=== PATIENT | male | born 1930 | race Caucasian/White ===

== ENCOUNTER 2017-01-28 09:17 | Inpatient (IN) | payer MEDICARE, BC ==
[2017-01-26 10:29] LABS: BUN (BLOOD UREA NITROGEN) 45 MG/DL (6-23); CALCIUM, SERUM 8.4 MG/DL (8.5-10.4); CHLORIDE, SERUM 105 MMOL/L (96-112); CO2 (CARBON DIOXIDE) 27 MMOL/L (24-34); CREATININE 2.27 MG/DL (0.70-1.30); GFR AFRICAN AMERICAN 29 ML/MIN (>=60); GFR NON AFRICAN AMERICAN 25 ML/MIN (>=60); GLUCOSE, SERUM 174 MG/DL (60-99); POTASSIUM, SERUM 4.3 MMOL/L (3.5-5.3); SODIUM, SERUM 140 MMOL/L (135-148)
--- NOTE | ~2017-01-28 | HP ---
History And Physical [place] [address] [facility] [place]. [address] NAME: CHARISSE WEIR : [birth year] STATUS : ADM IN PAT#: [id number] AGE: 86 ADM/REG DATE : 01/28/17 MR#: [id number] REPORT SERV DATE: 01/28/17 DICTATED BY: PATRICK LUO DATE: 01/28/17 REPORT STATUS : Draft TRANSCRIBED BY: MODL DATE: 01/28/17 DATE OF ADMISSION: 01/28/2017 REASON FOR ADMISSION: Acute diverticulosis. HISTORY OF PRESENT ILLNESS: This is an 86-year-old white male who has trouble getting around the house and walking with stumbling and is at fall risk. He is trying to take care of his disabled who is in worse shape than he. His son and yyekaaev-ox-nii live across the street from him and he does have in care family visitors to help him. He began to have some vomiting and nausea earlier today and was constipated for the last couple of days. He has had diverticulitis less than three times. He has had surgery in the past by Dr. David Carrington. In all, he has had 22 surgeries. He has significant vascular disease and is followed by Dr. Ledezma for this. He has had no recent chest pain or increased shortness of breath. He does have swelling in his lower extremities all the time, and he says he has a history of congestive heart failure. He is admitted for treatment of the diverticulitis and is not probably a surgical candidate. His primary care physician is Dr. Damion Parker, with whom he has discussed end of life care. He does not want intubation or ventilation. PAST MEDICAL HISTORY: History of coronary artery disease with initial CABG in 1995 and a repeat CABG in 07/2004. He has peripheral arterial disease. Has had a femoral angioplasty and stent placement in 2008. Dr. Oscar Greer did this. He had a right SFA angioplasty in 2008 and a femoral-popliteal bypass in 2009. He had a carotid artery stenosis with a CEA on the right in 08/2011, also by Dr. Oscar Greer. Diabetes type 2, on insulin. Had been on Starlix and Levemir in the past. He has a history of hypertension, hyperlipidemia, chronic kidney disease, for which he sees Dr. Nick Park, but has not seen him in the last two or three years. He has GERD, history of pair of ganglioma and had a thoracotomy back in 1996 before that. He has a history of hyperparathyroidism and had a parathyroid gland removed previously. Dr. David Carrington had done this as well. He has esophageal stricture and has had dilation in the past. No recent dilation or dysphagia. He had a history of gastritis and GERD. He had a stomach ulcer as well in the past. I believe Dr. Park had done his endoscopy. 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 He had prostate cancer, was on Lupron, followed by Dr. Delfino Washington in the past, and he also has dysuria and trouble urinating now. He does have a history of hemorrhoids as well. HOME MEDICATIONS: Include the following: Xanax 1 mg twice a day, aspirin 81 mg p.o. daily, atorvastatin one a day, Plavix 75 mg p.o. daily, Fenofibrate 150 mg p.o. daily, flutamide 125 mg three times a day, folic acid and B12 and intrinsic factor one a day, furosemide 20 mg twice a day, Levemir 10 units at bedtime, pantoprazole 40 mg p.o. b.i.d., potassium History And Physical [address] [address] NAME: CHARISSE WEIR : [birth year] STATUS : ADM IN [facility]#: [id number] AGE: 86 ADM/REG DATE : 01/28/17 MR#: [id number] REPORT SERV DATE: 01/28/17 DICTATED BY: PATRICK LUO DATE: 01/28/17 REPORT STATUS : Draft TRANSCRIBED BY: MODL DATE: 01/28/17 chloride 10 mEq p.o. daily. He was on Starlix. Had been on Lopressor. Januvia 50 mg a day. ALLERGIES: HE IS ALLERGIC TO MORPHINE THAT CAUSES ITCHING AND RASH. SOCIAL HISTORY: He is . Takes care of his at home. 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 He had 35 years of work. A day or before, he retired. He lives in [place]. He quit smoking cigarettes 20 years ago. He did have asbestos exposure. He had attended the [employer] in the past, but grew up having build the [facility] in [place] when he lived in [facility] from the age 6 until adolescence. He has knee pain and does not ambulate very much. His orthopedic surgeon, Dr. Arnold, had thought he was too old and had too many medical problems to replace the knee joint. He takes a beer about once every two to three weeks, and keeps it at home in case somebody comes by. He does not take any other drugs. FAMILY HISTORY: He does not recall any other diseases that had ran in the family in the past. REVIEW OF SYSTEMS: He says he has 30% function of his heart or kidneys. Whether this was ejection fraction or creatinine clearance, it is unclear. He does have some aortic sclerosis, LVH, and had an echocardiogram in 2013 that showed ejection fraction in the 50s by old chart review. He has had no chest pain or shortness of breath. He has been nauseated and had some vomiting earlier. He has been constipated most recently. He has had no fever, chills, or night sweats. No unilateral weakness, melena, or hematemesis. [place] [phone] when Bernard QUIROS saw him in the emergency room and therefore elicited my help with admission to the hospital. He has had no melena, hematemesis, fits, seizures, convulsions, unilateral weakness, nausea, vomiting, or diarrhea. No weight loss. The remainder of the review of systems is negative except as above. PHYSICAL EXAMINATION: GENERAL: An elderly white male, looks chronically ill. No acute distress. Slow speech. Squints with the right eye. HEENT: EOMI. Sclerae are clear. Conjunctivae pink. NECK: No bruit. Without any JVD, though he does have a CEA scar on the right side that is visible. CHEST: Clear to A and P. The sternotomy scar is well healed. HEART: Regular S1, S2 without murmur, gallop, or click. ABDOMEN: Soft, is tender in the left lower quadrant. Bowel sounds are positive. No masses felt. EXTREMITIES: Have 1+ to trace edema bilaterally. I do not feel any distal pulses through dorsalis, pedis, and posterior tibial. NEUROLOGIC: He does withdraw to plantar stimulation. 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 Coordination intact. No tremor. He is symmetric neurologically bilaterally. SKIN: Without rash, ecchymosis, or bruising. Specifically in the left flank, there is no History And Physical [address] [place]. [address] NAME: CHARISSE WEIR : [birth year] STATUS : ADM IN [facility]#: [id number] AGE: 86 ADM/REG DATE : 01/28/17 MR#: [id number] REPORT SERV DATE: 01/28/17 DICTATED BY: PATRICK LUO DATE: 01/28/17 REPORT STATUS : Draft TRANSCRIBED BY: MODL DATE: 01/28/17 ecchymosis or bruising. LYMPHATICS: None are palpable. RECTAL: Exam was deferred, though he is having dysuria now. LABORATORY DATA: His white count is 25.8000, hemoglobin 11.4, hematocrit 35, platelet count is 346,000. His comprehensive metabolic panel shows a sodium of 140, potassium 4.5, BUN is 50 with a creatinine of 3.0. His glucose was 201. His estimated GFR was 18 mL a minute. His alkaline phosphatase 146. Otherwise liver tests are normal. Lipase is 204. The urinalysis showed a specific gravity of 1.013 with pH of 5. Negative dip. CT scan of the abdomen showed thickening of distal colon and sigmoid colon with stranding and inflammation in the adjacent mesentery consistent with diverticulitis. No abscess or free air collection was noted. Extensive calcified coronary arteries and abdominal aorta bilaterally and mild bilateral renal atrophy. Previous BMP on 01/26, had shown a creatinine of 2.24 with a BUN of 45, sodium 140, creatinine clearance estimated at 25 mL a minute. ASSESSMENT: 1. Diverticulitis with periluminal stranding into the fat tissue around this. I am going to go ahead and start him on the antibiotics now. He has already gotten Levaquin and Flagyl in the emergency room. We will continue these as before. 2. Peripheral vascular disease. 3. Cerebrovascular disease. 4. Atherosclerotic cardiovascular disease, status post CABG in 1995 and 2003. 5. Falling. 6. Chronic kidney disease, previously followed by Dr. Park. 7. Possible congestive heart failure, though his ejection fraction is 50%. He does not appear to have congestive heart failure at this time. 8. History of hyperparathyroidism, surgically treated. We will check magnesium and calcium. 9. Poor memory. 10.The patient does not wish to be resuscitated in the event of cardiac arrest. I reviewed what we should do in the event of natural occurring, and he requested no treatment. However, during the hospitalization, we will allow for treatment of life- threatening arrhythmias or hemodynamic compromise, and we will limit chest compressions and mechanical ventilation via endotracheal tube to be the measures he would not wish undertaken. PLAN: Levaquin and Flagyl IV. Check procalcitonin. Check sedimentation rate for parameter to follow for hospitalization. The patient does not appear to be a good surgical candidate and therefore IV antibiotics and bowel rest with clear liquids initially would be the most clear method of treatments. I am going to go ahead and insert a Sauceda catheter for comfort for the patient as he is having trouble with obstructive symptoms now. Once the infection improves, we should be able to take the Sauceda catheter out perhaps tomorrow. History And Physical [address] [address] NAME: CHARISSE WEIR : [birth year] STATUS : ADM IN [facility]#: [id number] AGE: 86 ADM/REG DATE : 01/28/17 MR#: [id number] REPORT SERV DATE: 01/28/17 DICTATED BY: PATRICK LUO DATE: 01/28/17 REPORT STATUS : Draft TRANSCRIBED BY: KALEE DATE: 01/28/17 DB/KALEE Patrick Luo M.D. / [id number] CC: Gil Conte M.D. Robert Berglund, M.D. R. Smith Murray, M.D. Douglas Vanderbilt, M.D. Nilesh C Patel, M.D.
--- NOTE | ~2017-01-28 | DS ---
Discharge Summary [facility] [address] [place]. [address] NAME: CHARISSE WEIR : [birth year] STATUS : DIS IN PAT#: [id number] AGE: 86 ADM/REG DATE : 01/28/17 MR#: [id number] REPORT SERV DATE: 02/01/17 DICTATED BY: SUMIT ORR DATE: 01/31/17 REPORT STATUS : Draft TRANSCRIBED BY: MODL DATE: 01/31/17 ADMISSION DATE: 01/28/2017 DISCHARGE DATE: 01/31/2017 REASON FOR ADMISSION: Acute diverticulitis. HPI: Please refer Dr. Loja's history and physical dated 01/28/2017 for complete details on the patient's admission. The patient was admitted to the Hospitalist Service for management of acute diverticulitis. HOSPITAL COURSE: The patient had an uncomplicated hospital course. He presented with left lower quadrant abdominal pain and markedly elevated white blood cell count in the 20,[address] scan of his abdomen and pelvis done without contrast done in the ER, which showed thickening of the distal descending colon, sigmoid colon with stranding and inflammation in the adjacent mesentery consistent with diverticulitis. He was started on IV Levaquin and Flagyl daily and his pain has been reduced. He has been given several laxatives, but had a little bit of a bowel movement with the help of IV fluids and antibiotics. His white blood cell count has now come down to about 12,000. He also presented with acute kidney injury on CKD, stage 3. He is back down to his baseline creatinine of around 2. He has reached maximal hospitalization and will be discharged later today if he has a bowel movement. DISCHARGE DIAGNOSES: 1. Acute diverticulitis, resolving. 2. Acute kidney injury on chronic kidney disease stage 3, now back to baseline. 3. Peripheral vascular disease. 4. Hyperlipidemia. 5. History of hyperparathyroidism, status post resection. 6. Constipation. PROCEDURES: Include CT scan of the abdomen and pelvis. The patient is a DNR/DNI. DISCHARGE MEDICATIONS: Aspirin 81 mg once a day, Lipitor 40 mg a day, Plavix 75 mg daily, fenofibrate 150 mg daily, folate, vitamin, insulin, Levemir 10 units at bedtime, Protonix 40 mg twice a day, Klor-Con 10 mEq daily, Starlix, Lopressor 25 mg twice a day, flutamide 125 mg three times a day, furosemide 20 mg twice a day, Januvia, Xanax 1 mg twice a day, Levaquin 750 mg once a day for 10 days, Flagyl 500 mg every eight hours for 10 days. FOLLOWUP: The patient will follow up with PCP. Spending over 30 minutes on discharge planning and coordination of care on Mr. Weir. DICTATED BY: Sumit Orr MD Discharge Summary [address] [address] NAME: CHARISSE WEIR : [birth year] STATUS : DIS IN PAT#: [id number] AGE: 86 ADM/REG DATE : 01/28/17 MR#: [id number] REPORT SERV DATE: 02/01/17 DICTATED BY: SUMIT ORR DATE: 01/31/17 REPORT STATUS : Draft TRANSCRIBED BY: KALEE DATE: 01/31/17 MARRY Sumit Orr MD / [id number] CC: MD Krystyna Hadley M.D.
[~2017-01-28 09:17] MED LIST: ASAB PO; DCN100 PO; FLUTAMIDE125 MG PO; JANUVIA100 MG PO; JANUVIA50 PO; K-TABS10 MEQ PO; KDUR20 PO; KLOR-CON 1010 MEQ PO; L20 PO; LEVEMFLXPN SC; LEVEMIR SC; LIPITOR40 OR; LIPITOR40 PO; LIPOFEN150 MG PO; LOP25 PO; LUPRON IM; MAGOX4 PO; METANX PO; NITROQUICK0.4 MG SL; NORV5 OR; PLAVIX PO; PRAVACHOL40 MG PO; PRILO PO; PROTONIX PO; STARLIX120 PO; SYMBICORT 80/4.1 INH INH; TRICOR145 PO; TUMSROLL PO; TYLENOL SIN1 PO; VITAMIN D31000 UNIT PO; VITD PO; XANAX1 MG PO; XANAX2 MG PO; ZANTAC 150 PO; [UNRECOGNIZED DRUG - OTHER]
[2017-01-28 10:30] LABS: HEMOGLOBIN 11.4 g/dL (13.6-17.8); MEAN CORPUS HGB CONC 32.6 g/dL (32.0-36.0); MEAN CORPUSCULAR HEMOGLOB 29.6 pg (26.0-34.0); MEAN CORPUSCULAR VOLUME 90.9 fL (80-100); MEAN PLATELET VOLUME 11.2 fL (9.2-13.0); PLATELET COUNT 347 10/3/uL (150-400); RED CELL COUNT 3.85 10/6/uL (4.7-6.1)
[2017-01-28 10:32] LABS: ER CBC TAT 0 Hrs 10 Mins; MANUAL DIFF YES %; WHITE BLOOD CELLS 25.8 10/3/uL (4.5-10.5)
[2017-01-28] MEDS ORDERED: FLUTAMIDE125 MG PO (10:33)
[2017-01-28] MEDS ORDERED: Starlix (10:33)
[2017-01-28] MEDS ORDERED: Lopressor (10:33)
[2017-01-28] MEDS ORDERED: PLAVIX PO (10:33)
[2017-01-28] MEDS ORDERED: LIPOFEN150 MG PO (10:35)
[2017-01-28] MEDS ORDERED: L20 PO (10:35)
[2017-01-28] MEDS ORDERED: LIPITOR40 PO (10:35)
[2017-01-28] MEDS ORDERED: XANAX1 MG PO (10:36)
[2017-01-28] MEDS ORDERED: PROTONIX PO (10:36)
[2017-01-28] MEDS ORDERED: Januvia (10:36)
[2017-01-28] MEDS ORDERED: KLOR-CON 1010 MEQ PO (10:36)
[2017-01-28] MEDS ORDERED: HALF81 PO (10:37)
[2017-01-28] MEDS ORDERED: LEVEMIR SC (10:37)
[2017-01-28] MEDS ORDERED: INSTRINSI PO (10:37)
[2017-01-28 10:38] LABS: ASCORBIC ACID (UR NOT ORDER) NEG (NEG); BILIRUBIN, URINE NEGATIVE (NEG); ER URINALYSIS TAT 0 Hrs 16 Mins; KETONE, URINE TRACE MG/DL (NEG); LEUKOCYTE ESTERASE(NOT OR NEG (NEG); NITRITE (URINE) NEG (NEG); WBC (NOT ORDERED) (RFLEX) < 1 (0-5)
[2017-01-28 10:47] LABS: ALBUMIN 3.9 G/DL (3.5-5.0); CALCIUM, SERUM 8.8 MG/DL (8.5-10.4); CHLORIDE, SERUM 106 MMOL/L (96-112); CO2 (CARBON DIOXIDE) 26 MMOL/L (24-34); GLUCOSE, SERUM 201 MG/DL (60-99); POTASSIUM, SERUM 4.5 MMOL/L (3.5-5.3); SGOT(AST) 17 U/L (5-40); SGPT(ALT) 17 U/L (5-65); SODIUM, SERUM 140 MMOL/L (135-148); TOTAL BILIRUBIN 0.6 MG/DL (0-1.2); TOTAL PROTEIN 7.4 G/DL (6.0-8.5)
[2017-01-28 10:50] LABS: A/G RATIO 1.1 (0.7-1.9); ALKALINE PHOSPHATASE 146 U/L (45-117); BUN (BLOOD UREA NITROGEN) 50 MG/DL (6-23); GFR AFRICAN AMERICAN 21 ML/MIN (>=60); GFR NON AFRICAN AMERICAN 18 ML/MIN (>=60); GLOBULIN 3.5 G/DL (2.5-4.1)
[2017-01-28 11:03] LABS: BAND NEUTROPHILS 22 %; ER DIFF TAT 0 Hrs 41 Mins; LYMPHOCYTES 5 %; LYMPHOCYTES ABSOLUTE (CALC) 1.29 10/3/uL (0.67-4.30); MONOCYTES 12 %; NEUTROPHILS ABSOLUTE (CALC) 21.41 10/3/uL (2.02-8.40); PLATELET ESTIMATE ADQ (ADEQUATE); SEGMENTED NEUTROPHIL (0) 61 %; TOTAL NUCLEATED CELLS 100
[2017-01-28 11:04] LABS: BURR CELLS 1+ (3-10/OIF) (0-2/OIF)
[2017-01-28 16:09] LABS: PROSTATIC SPECIFIC AG < 0.05 NG/ML (0.0-6.5)
[2017-01-28 16:21] LABS: PROCALCITONIN <0.05 ng/mL (<0.5)
[2017-01-28 16:37] LABS: SED RATE 31 MM/HR (0-15)
[2017-01-29 07:41] LABS: BASOPHILS 0.2 %; BASOPHILS ABSOLUTE 0.04 10/3/uL (0.0-0.16); EOSINOPHILS 1.5 %; EOSINOPHILS ABSOLUTE 0.24 10/3/uL (0.0-0.53); HEMATOCRIT 28.8 % (40.0-51.0); HEMOGLOBIN 9.4 g/dL (13.6-17.8); IMMATURE GRANULOCYTES 0.4 %; IMMATURE GRANULOCYTES ABSOLUTE 0.06 10/3/uL (0.0-0.11); LYMPHOCYTES 9.8 %; LYMPHOCYTES ABSOLUTE 1.59 10/3/uL (0.67-4.30); MANUAL DIFF NO %; MEAN CORPUS HGB CONC 32.6 g/dL (32.0-36.0); MEAN CORPUSCULAR HEMOGLOB 29.7 pg (26.0-34.0); MEAN CORPUSCULAR VOLUME 90.9 fL (80-100); MEAN PLATELET VOLUME 10.5 fL (9.2-13.0); MONOCYTES 9.8 %; MONOCYTES ABSOLUTE 1.59 10/3/uL (0.21-1.20); NEUTROPHILS 78.3 %; NEUTROPHILS ABSOLUTE 12.76 10/3/uL (2.02-8.40); PLATELET COUNT 287 10/3/uL (150-400); RBC DISTRIBUTION WIDTH 13.9 % (12.0-16.0); RED CELL COUNT 3.17 10/6/uL (4.7-6.1); WHITE BLOOD CELLS 16.3 10/3/uL (4.5-10.5)
[2017-01-29 08:00] LABS: BUN (BLOOD UREA NITROGEN) 39 MG/DL (6-23); CALCIUM, SERUM 8.3 MG/DL (8.5-10.4); CHLORIDE, SERUM 110 MMOL/L (96-112); CO2 (CARBON DIOXIDE) 24 MMOL/L (24-34); CREATININE 2.58 MG/DL (0.70-1.30); GFR AFRICAN AMERICAN 25 ML/MIN (>=60); GFR NON AFRICAN AMERICAN 21 ML/MIN (>=60); GLUCOSE, SERUM 111 MG/DL (60-99); POTASSIUM, SERUM 4.5 MMOL/L (3.5-5.3); SODIUM, SERUM 141 MMOL/L (135-148)
[2017-01-31 05:56] LABS: BASOPHILS 0.5 %; BASOPHILS ABSOLUTE 0.06 10/3/uL (0.0-0.16); EOSINOPHILS 5.8 %; EOSINOPHILS ABSOLUTE 0.71 10/3/uL (0.0-0.53); HEMATOCRIT 28.6 % (40.0-51.0); HEMOGLOBIN 9.4 g/dL (13.6-17.8); IMMATURE GRANULOCYTES 0.7 %; IMMATURE GRANULOCYTES ABSOLUTE 0.08 10/3/uL (0.0-0.11); LYMPHOCYTES 14.8 %; MEAN CORPUS HGB CONC 32.9 g/dL (32.0-36.0); MEAN CORPUSCULAR HEMOGLOB 29.8 pg (26.0-34.0); MEAN CORPUSCULAR VOLUME 90.8 fL (80-100); MEAN PLATELET VOLUME 10.8 fL (9.2-13.0); MONOCYTES 8.9 %; MONOCYTES ABSOLUTE 1.08 10/3/uL (0.21-1.20); NEUTROPHILS 69.3 %; NEUTROPHILS ABSOLUTE 8.44 10/3/uL (2.02-8.40); PLATELET COUNT 295 10/3/uL (150-400); RBC DISTRIBUTION WIDTH 13.7 % (12.0-16.0); RED CELL COUNT 3.15 10/6/uL (4.7-6.1); WHITE BLOOD CELLS 12.2 10/3/uL (4.5-10.5)
[2017-01-31 05:57] LABS: MANUAL DIFF NO %
[2017-01-31 06:11] LABS: CALCIUM, SERUM 8.5 MG/DL (8.5-10.4); CHLORIDE, SERUM 115 MMOL/L (96-112); CO2 (CARBON DIOXIDE) 20 MMOL/L (24-34); GFR AFRICAN AMERICAN 33 ML/MIN (>=60); GFR NON AFRICAN AMERICAN 28 ML/MIN (>=60); GLUCOSE, SERUM 97 MG/DL (60-99); POTASSIUM, SERUM 4.5 MMOL/L (3.5-5.3); SODIUM, SERUM 138 MMOL/L (135-148)
[2017-01-31 06:13] LABS: BUN (BLOOD UREA NITROGEN) 30 MG/DL (6-23); CREATININE 2.03 MG/DL (0.70-1.30)
[2017-01-31] MEDS ORDERED: FLAG500TAB PO (14:23)
[2017-01-31] MEDS ORDERED: LEVAQUIN750 MG PO (14:24)
[2017-01-31] MEDS ORDERED: [UNRECOGNIZED DRUG - OTHER] (14:34)
[2017-01-31] MEDS ORDERED: JANUVIA (14:34)
[2017-01-31] MEDS ORDERED: STARLIX (14:34)
== END 2017-01-31 17:05 | disposition home or self-care (01) | DRG 392 ==
LOC: ER 09:17 → 5SO 12:58
PROVIDERS: Internal Medicine; Internal Medicine Cardiovascular Disease; Physician Assistant
DX: K57.32 Diverticulitis of large intestine without perforation or abscess without bleeding (principal); N17.9 Acute kidney failure, unspecified; E11.22 Type 2 diabetes mellitus with diabetic chronic kidney disease; I73.9 Peripheral vascular disease, unspecified; I25.10 Atherosclerotic heart disease of native coronary artery without angina pectoris; I12.9 Hypertensive chronic kidney disease with stage 1 through stage 4 chronic kidney disease, or unspecified chronic kidney disease; N18.9 Chronic kidney disease, unspecified; E78.5 Hyperlipidemia, unspecified; K21.9 Gastro-esophageal reflux disease without esophagitis; Z91.81 History of falling; Z85.46 Personal history of malignant neoplasm of prostate; Z95.1 Presence of aortocoronary bypass graft; Z77.090 Contact with and (suspected) exposure to asbestos; Z79.82 Long term (current) use of aspirin; Z79.01 Long term (current) use of anticoagulants; Z95.820 Peripheral vascular angioplasty status with implants and grafts; Z88.5 Allergy status to narcotic agent; Z79.4 Long term (current) use of insulin; Z88.6 Allergy status to analgesic agent
CPT/HCPCS: 36415; 74176; 80048; 80053; 81001; 82962; 83690; 83735; 84145; 84153; 85025; 85652; 96365; 96375; 99285; A9270-GY; J1170; J1956; J2405